=== PATIENT | male | born 1960 ===

== ENCOUNTER 2020-11-14 14:54 | Inpatient (IN) | payer OTHER ==
[~2020-11-14] VITALS: Ht 195.6 cm; Wt 133.0 kg
[2020-11-14 15:53] LABS: Hematocrit 32.7 % (37.0-53.0); Hemoglobin 11.2 g/dL (13.5-17.5); Mean Corpuscular HGB 29.3 pg (26.0-34.0); Mean Corpuscular HGB Conc 34.3 g/dL (31.5-36.5); Mean Corpuscular Volume 86 fL (80-100); Mean Platelet Volume 9.4 fL (9.1-12.4); Platelet Count 188 K/mm3 (150-400); RDW Coefficient Variation 11.3 % (11.7-14.2); RDW Standard Deviation 35.1 fL (35.1-46.3); Red Blood Cell Count 3.82 M/mm3 (4.30-5.90)
[2020-11-14] MEDS ORDERED: Prinivil10 MG PO (16:15)
[2020-11-14] MEDS ORDERED: Vitamin D1000 UNI1 PO (16:15)
[2020-11-14] MEDS ORDERED: METF500 PO (16:15)
[2020-11-14] MEDS ORDERED: Hair, Skin & N1 EACH PO (16:15)
[2020-11-14 16:17] LABS: Alanine Aminotransfer (ALT/SGP 26 U/L (12-78); Albumin, Blood 2.1 g/dL (3.4-5.0); Albumin/Globulin Ratio 0.5 (0.8-1.8); Alk Phos 71 U/L (50-136); Anion Gap 12 mmol/L (6-16); Aspartate Aminotrans (AST/SGOT 32 U/L (12-37); Bilirubin, Total 0.8 mg/dL (0.1-1.0); Blood Urea Nitrogen 55 mg/dL (8-24); Bun/Creatinine Ratio 20.1 (12.0-20.0); CO2, Blood 19 mmol/L (21-32); Calcium, Blood 8.9 mg/dL (8.5-10.1); Chloride, Blood 99 mmol/L (98-108); Creatinine, Blood 2.73 mg/dL (0.60-1.20); Globulin, Blood 4.5 g/dL (2.2-4.0); Glomerular Filtration Rate 24 (60-); Glucose, Blood 256 mg/dL (70-99); Potassium, Blood 4.1 mmol/L (3.5-5.5); Sodium, Blood 130 mmol/L (136-145); Total Protein, Blood 6.6 g/dL (6.4-8.2)
[2020-11-14 16:26] LABS: BAND PERCENT MAN 9 % (0-8); BASOPHILS PERCENT MAN 0 % (0-2); EOSINOPHILS PERCENT MAN 0 % (0-6); LYMPHOCYTES PERCENT MAN 6 % (21-46); METAMYELOCYTE ABSOLUTE MAN 0.15 K/mm3 (0.00-0.00); METAMYELOCYTE PERCENT MAN 1 % (0-0); MONOCYTES PERCENT MAN 6 % (4-13); NEUTROPHILS ABSOLUTE MAN 13.13 K/mm3 (1.96-9.15); SEG NEUTROPHILS PERCENT MAN 78 % (41-73); TOTAL CELLS COUNTED 100
[2020-11-14 16:37] LABS: C-REACTIVE PROTEIN, EXT RANGE >19.000 mg/dL (0.000-0.300)
[2020-11-14 19:34] LABS: SARS-Cov-2 (COVID-19) PCR, MMC NEGATIVE (NEGATIVE)
--- NOTE | 2020-11-14 23:11 | NUR ---
11/14/20 2311 Ester Jackson PT ON SCHEDULED ANTIBIOTIC
--- NOTE | 2020-11-15 02:48 | NUR ---
RECEIVED HAND OFF FROM Claudia JACOB RN USING SBAR. TRANSPORTED TO ROOM 215 VIA STRETCHER. TRANSFERED TO BED WITH FULL STAFF ASSISTANCE, TOLERATED WELL. AAO X4, [place], FOLLOWS ALL COMMANDS. ORIENTED TO ROOM, CALL SYSTEM, AND POC, VOICES UNDERSTAING. RESPIRATIONS EVEN AND UNLABORED ON O2 AT 4L/NC, SAT AT 98%. O2 TITRATED TO 2L/NC, SAT AT 96% AND TOLERATING WELL. ABDOMEN SOFT AND NONDISTENDED. BOWEL SOUNDS NOTED IN ALL QUADS. CONTINENT OF BOWEL AND BLADDER. LLE BKA WITH STUMP DRESSINGS IN PLACE, STUMP SOCK REMIANS C/D/I AND ELEVATED ON 2 PILLOWS. RATES PAIN AT 3/10 AFTER PLACEMENT OF PILLOWS. SCD TO RLE IN PLACE. RIGHT AC 20 PIV IS PATENT, REMAINDER OF OR FLUIDS INFUSING TO GRAVITY. DENIES FURTHER NEEDS AT THIS TIME. ADMISSION ASSESSMENT IN PROGRESS. SAFETY MEASURES IN PLACE. WILL CONTINUE TO MONITOR AND ADDRESS NEEDS THEY ARISE.
[2020-11-15 04:52] LABS: BASOPHILS ABSOLUTE AUTO 0.01 K/mm3 (0.00-0.23); BASOPHILS PERCENT AUTO 0 % (0-2); EOSINOPHILS PERCENT AUTO 0 % (0-6); Hematocrit 30.3 % (37.0-53.0); Hemoglobin 10.3 g/dL (13.5-17.5); IMMATURE GRAN ABSOLUTE AUTO 0.08 K/mm3 (0.00-0.10); IMMATURE GRAN PERCENT AUTO 1 % (0-1); LYMPHOCYTES ABSOLUTE AUTO 0.59 K/mm3 (0.84-5.20); LYMPHOCYTES PERCENT AUTO 6 % (21-46); MONOCYTES ABSOLUTE AUTO 0.36 K/mm3 (0.16-1.47); MONOCYTES PERCENT AUTO 4 % (4-13); Mean Corpuscular HGB 29.2 pg (26.0-34.0); Mean Corpuscular Volume 86 fL (80-100); Mean Platelet Volume 9.4 fL (9.1-12.4); NEUTROPHILS ABSOLUTE AUTO 9.08 K/mm3 (1.96-9.15); NEUTROPHILS PERCENT AUTO 90 % (41-73); Platelet Count 164 K/mm3 (150-400); RDW Coefficient Variation 11.5 % (11.7-14.2); Red Blood Cell Count 3.53 M/mm3 (4.30-5.90); White Blood Cell Count 10.12 K/mm3 (4.00-11.30)
[2020-11-15 05:16] LABS: Bun/Creatinine Ratio 32.2 (12.0-20.0); Calcium, Blood 8.4 mg/dL (8.5-10.1); Creatinine, Blood 1.71 mg/dL (0.60-1.20); Potassium, Blood 4.8 mmol/L (3.5-5.5)
--- NOTE | 2020-11-15 05:59 | NUR ---
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 GAUZE, KERLIX, RJ WRAP, AND STUMP SOCK C/D/I. PT A&O X4 AND PLEASANT. PT IS TOLERATING CLEAR LIQUIDS WELL W/O REPORT OF N/V. PT DENIES PASSING FLATUS AT THIS TIME BUT BOWEL TONES ARE PRESENT. PT HAS REPORTED SOME PAIN AND WAS TREATED PER EMAR. PT SITTING UP IN BED AND RESTING W/CALLLIGHT WITHIN REACH AND USES CALL LIGHT APPROPRIATELY.
[2020-11-15 12:04] LABS: PCO2 Venous 29.2 mmHg (38-42); PO2 Venous 96.8 mmHg (38-42); pH Blood Venous 7.37 (7.34-7.37)
[2020-11-15 12:05] LABS: Base Excess Venous -8.4 mmol/L; Bicarbonate Venous 18.6 mmol/L (24.0-30.0)
[2020-11-16 05:15] LABS: BASOPHILS ABSOLUTE AUTO 0.02 K/mm3 (0.00-0.23); BASOPHILS PERCENT AUTO 0 % (0-2); EOSINOPHILS ABSOLUTE AUTO 0.06 K/mm3 (0.00-0.68); EOSINOPHILS PERCENT AUTO 1 % (0-6); Hematocrit 29.5 % (37.0-53.0); Hemoglobin 10.2 g/dL (13.5-17.5); Mean Corpuscular HGB 29.4 pg (26.0-34.0); Mean Corpuscular HGB Conc 34.6 g/dL (31.5-36.5); Mean Corpuscular Volume 85 fL (80-100); Mean Platelet Volume 9.3 fL (9.1-12.4); Platelet Count 218 K/mm3 (150-400); RDW Coefficient Variation 11.7 % (11.7-14.2); Red Blood Cell Count 3.47 M/mm3 (4.30-5.90); White Blood Cell Count 12.72 K/mm3 (4.00-11.30)
[2020-11-16 05:16] LABS: IMMATURE GRAN ABSOLUTE AUTO 0.13 K/mm3 (0.00-0.10); IMMATURE GRAN PERCENT AUTO 1 % (0-1); LYMPHOCYTES ABSOLUTE AUTO 1.84 K/mm3 (0.84-5.20); LYMPHOCYTES PERCENT AUTO 15 % (21-46); MONOCYTES ABSOLUTE AUTO 0.71 K/mm3 (0.16-1.47); MONOCYTES PERCENT AUTO 6 % (4-13); NEUTROPHILS ABSOLUTE AUTO 9.96 K/mm3 (1.96-9.15); NEUTROPHILS PERCENT AUTO 78 % (41-73)
[2020-11-16 05:39] LABS: Anion Gap 6 mmol/L (6-16); Blood Urea Nitrogen 38 mg/dL (8-24); Bun/Creatinine Ratio 32.8 (12.0-20.0); CO2, Blood 21 mmol/L (21-32); Calcium, Blood 8.7 mg/dL (8.5-10.1); Chloride, Blood 111 mmol/L (98-108); Creatinine, Blood 1.16 mg/dL (0.60-1.20); Glomerular Filtration Rate >60 (60-); Glucose, Blood 199 mg/dL (70-99); Potassium, Blood 4.3 mmol/L (3.5-5.5); Sodium, Blood 138 mmol/L (136-145)
--- NOTE | 2020-11-16 06:12 | NUR ---
SHIFT SUMMARY POD2 L BKA WITH DR. FINNEY. PT REPORTS MINIMAL PHANTOM PAIN AND DISCOMFORT. DENIES TAKING ANY PAIN MEDS T/O SHIFT. DANGLES ON THE SIDE OF BED INDEPENDENTLY AND USED URINAL. AOX4 AND PLEASANT. LLE WRAPPED WITH RJ WRAP AND STUMP SOCK, CDI. TOLERATING PO INTAKE (ADA DIET). CBG AT 263 HS. VOIDING WITHOUT DIFFICULTY. PT HAD A HARD TIME SLEEPING OVERNIGHT. IV ABX ADMINISTERED. BOTH IV ON L FOREARM (NOT PATENT WHILE INFUSING VANCO) AND R AC (LEAKING WHILE FLAGYL WAS INFUSING) WAS DC'S NEW IV ON L FOREARM WAS PLACED THIS AM. CALL LIGHT WITHIN REACH. WILL PROVIDE REPORT TO ONCOMING NURSE.
[2020-11-16 21:27] LABS: Vancomycin, Trough 18.6 ug/mL (5.0-10.0)
--- NOTE | 2020-11-17 05:02 | NUR ---
SHIFT SUMMARY NO ACUTE CHANGES OVERNIGHT. PT REPORTS MINIMAL PHANTOM PAIN ON LLE. DENIES TAKING ANY PAIN. TOLERATING PO INTAKE, DENIES NAUSEA AND VOMITING. VOIDING ADEQUATELY. VANCO ADMINISTERED VIA IV LAST NIGHT. VSS. AFEBRILE. BLOOD CULTURES WAS DRAWN THIS AM, RESULTS PENDING. LLE WITH RJ WRAP AND STUMP SOCK, CDI. AOX4. CALLS APPROPRIATELY. CALL LIGHT WITHIN REACH. WILL PROVIDE REPORT TO ONCOMING NURSE.
--- NOTE | 2020-11-18 03:37 | NUR ---
SHIFT SUMMARY NO ACUTE CHANGES OVERNIGHT. PT SLEPT GOOD T/O SHIFT. POD4 L BKA. LLE WITH RJ WRAP AND STUMP SOCK IN PLACED, CDI. PT DENIES PAIN, DENIES NUMBNESS AND TINGLING SENSATION. VSS. IV ABX ADMINSTERED. SALINE LOCKED. AMBULATES WITH FWW AND GB, SBA. PT HAD 1 BM LAST NIGHT. TOLERATING PO INTAKE, DENIES N/V. CALL LIGHT WITHIN REACH. WILL PROVIDE REPORT TO ONCOMING NURSE.
--- NOTE | 2020-11-18 18:22 | NUR ---
SHIFT SUMMARY PT POD #4 FOR AMPUTATION OF THE L FOOT. HE IS DOING WELL THIS SHIFT AND HAS NOT REPORTED ANY PAIN. POWERGLIDE IN PLACE AND GETTING IV ANTIBIOTICS FOR INFECTION. VSS. WILL REPORT TO KAYLENE GORE.
--- NOTE | 2020-11-19 06:10 | NUR ---
PT IS A/OX3. ABLE TO MAKE HIS NEEDS KNOWN. IN GOOD SPIRITS. PLEASANT AND COOPERATIVE WITH STAFF AND HIS CARE. NO EVENTS DURING THE NIGHT. SHRINK SOCK TO LLE STUMP CDI. REPORTS PAIN TO LLE STUMP 1-03/21, DECLINED PRN PAIN MED. DID REFUSED HS DOSE OF STOOL SOFTNERS, REPORTS HAVING A FEW BM'S. DENIED DIARRHEA BUT SAYS STOOL IS VERY SOFT. DENIED ANY N/V. LFA POWERGLIDE PATENT. TOLERATING IV ABX WELL.
[2020-11-19 11:28] LABS: Albumin, Blood 2.2 g/dL (3.4-5.0); Anion Gap 6 mmol/L (6-16); Blood Urea Nitrogen 20 mg/dL (8-24); Bun/Creatinine Ratio 19.2 (12.0-20.0); CO2, Blood 25 mmol/L (21-32); Calcium, Blood 8.9 mg/dL (8.5-10.1); Chloride, Blood 106 mmol/L (98-108); Creatinine, Blood 1.04 mg/dL (0.60-1.20); Glomerular Filtration Rate >60 (60-); Glucose, Blood 189 mg/dL (70-99); Phosphorus, Blood 2.9 mg/dL (2.5-4.9); Potassium, Blood 4.5 mmol/L (3.5-5.5); Sodium, Blood 137 mmol/L (136-145)
[2020-11-19 11:31] LABS: BASOPHILS ABSOLUTE AUTO 0.08 K/mm3 (0.00-0.23); BASOPHILS PERCENT AUTO 1 % (0-2); EOSINOPHILS ABSOLUTE AUTO 0.48 K/mm3 (0.00-0.68); EOSINOPHILS PERCENT AUTO 5 % (0-6); Hemoglobin 11.8 g/dL (13.5-17.5); IMMATURE GRAN ABSOLUTE AUTO 0.54 K/mm3 (0.00-0.10); IMMATURE GRAN PERCENT AUTO 6 % (0-1); LYMPHOCYTES ABSOLUTE AUTO 1.74 K/mm3 (0.84-5.20); LYMPHOCYTES PERCENT AUTO 18 % (21-46); MONOCYTES ABSOLUTE AUTO 0.61 K/mm3 (0.16-1.47); MONOCYTES PERCENT AUTO 6 % (4-13); Mean Corpuscular HGB 29.4 pg (26.0-34.0); Mean Corpuscular HGB Conc 33.7 g/dL (31.5-36.5); Mean Corpuscular Volume 87 fL (80-100); Mean Platelet Volume 9.1 fL (9.1-12.4); NEUTROPHILS ABSOLUTE AUTO 6.39 K/mm3 (1.96-9.15); NEUTROPHILS PERCENT AUTO 65 % (41-73); Platelet Count 330 K/mm3 (150-400); RDW Coefficient Variation 11.5 % (11.7-14.2); RDW Standard Deviation 36.7 fL (35.1-46.3); Red Blood Cell Count 4.01 M/mm3 (4.30-5.90); White Blood Cell Count 9.84 K/mm3 (4.00-11.30)
--- NOTE | 2020-11-19 14:56 | NUR ---
SUMMARY: PT IS POD5 L BKA. A/O, VSS. SURGICAL SITE WNL AND PT REPORTS DOING EXERCISES IN BED, SEE THERPAY NOTES. PT ABLE TO WALK WITH SBA AND FWW, DOING WELL. PT REPORTS PAIN 2/10 AT MOST AND DENIES NEED FOR NARCO. PLAN [facility]IB[facility] TOMOR[facility]. WILL CTM AND REPORT TO KAYLENE GORE.
--- NOTE | 2020-11-19 17:30 | NUR ---
Pt is alert, oriented. His goal at this time [facility] prior to returning [facility]. He is positive and upbeat about his prognosis. No further issues noted at this time.
--- NOTE | 2020-11-19 17:55 | NUR ---
SUMMARY: PT IS AO TIMES 4 AND IS POD5. THE PT'S STOOL SOFTENER WAS DC. PT WS SEEN BY OT AND PT AND CONDUCTED VARIOUS EXERCISES, ROM, AND AMBULATION. PT HAS GOOD STRENGHT AND STABILITY WHEN STANDING UP, AMBULATING AND TRANSFERRING. PT HAS REFUSED AVAILABLE PAIN MEDS AND HAS A 2/10 PAIN LEVEL; PAIN IS WELL MANAGED. THE LEFT KNEE EXPPERIENCES SOME PAIN WHEN PT STANDS UP. THE PT IS SET TO BE DISCHARGED TO THE REHABILITATION FACILITY AT THE [place] TOMORROW; SET TIME IS UNDERTERMINED. PT IS MOTIVATED TO PARTICIPATE IN REHABILITATION AND ADJUSTMENTS POST SURGERY.
--- NOTE | 2020-11-20 05:30 | NUR ---
PT IS A/OX3. ABLE TO MAKE HIS NEEDS KNOWN. PLEASANT AND COOPERATIVE WITH STAFF AND HIS CARE. NO EVENTS OVER NIGHT. STUMP SOCK IN PLACE TO LLE STUMP. MINIMAL PAIN TO LLE STUMP. DECLINED PAIN MEDS. LUE POWERGLIDE PATENT. , CASSIE.
[2020-11-20 12:48] LABS: SARS-Cov-2 (COVID-19) PCR, MMC NEGATIVE (NEGATIVE)
--- NOTE | 2020-11-20 15:35 | NUR ---
REPORT GIVEN TO RNELVA AT [facility] AT [id number]
--- NOTE | 2020-11-20 15:36 | NUR ---
DRESSING CHANGED TO STUMP AT THIS TIME: INCISION IS WNL, NO DRAINAGE, SLIGHT REDNESS TO SKIN ABOVE INCISION. THERON INTACT. XEROFORM PLACED AT SITE THEN 4X4 GAUZE FOLLOWED BY SOFT ROLL GAUZE AND STUMP SOCK PER ORDER. PT TOLERATED WELL. AXEL RN, LETY AWARE OF DRESSING CHANGE.
--- NOTE | 2020-11-20 16:24 | NUR ---
SUMMARY: PT IS POD6 L BKA. A/O, VSS. NO ACUTE CHANGE TODAY, ABLE TO WORK WITH THERAPY, DOING WELL AMBULATING WITH FWW. PT HAVING LOOSE STOOLS, REFUSING STOOL SOFTENERS. PT DENIED NEED FOR PAIN MED. NO ACUTE CONCERNS AT THIS TIME, PLAN IS FOR TRANSFER TO [facility] TOMORROW AT 0800, PT AWARE. WILL PASS REPORT TO KAYLENE GORE.
--- NOTE | 2020-11-21 04:22 | NUR ---
SHIFT SUMMARY: PT POD#7 FOR A LEFT BKA. PT A&O X4. STUMP SOCK DRESSING C/D/I. PT OUT OF BED TO BATHROOM WITH SBA AND FWW. TOLERATING ACTIVITY WELL. RATING PAIN 2/10 ON PAIN SCALE AND DENIES NEED FOR PAIN MEDICATION. VOIDING WELL IN URINAL. NO SLIDING SCALE COVERAGE INDICATED FOR CBG. PT GIVEN SEMGLEE PER EMAR. PT NEEDING AN ADDITIONAL 2 WEEKS OF IV ABX AFTER DISCHARGE. PLAN FOR DISCHARGE TODAY TO THE [facility]. NO CONCERNS AT THIS TIME.
--- NOTE | 2020-11-21 09:04 | NUR ---
DISCHARGE PATIENT DISCHARGED IN STABLE CONDITION FOR TRANSFER TO [facility] FOR CONTINUATION OF CARE VIA EMS. VSS; REPORT GIVEN TO BAO STEVENSON AT [facility]. ALL BELONGINGS PACKED AND SENT WITH TRANSPORT
== END 2020-11-21 09:00 | disposition home or self-care (01) | DRG 475 ==
LOC: ER 14:54 → SURS 21:35 → ER 21:35 → MEDS 21:35 → SURS 11-15 01:54 → MEDS 11-15 01:54 → SURS 11-15 09:18
PROVIDERS: Family Medicine; Internal Medicine; Physician Assistant; ADMIT Family Medicine
PROC: 0Y6J0Z1 Detachment at Left Lower Leg, High, Open Approach (ICD-10-PCS; principal; 2020-11-15)
DX: M72.6 Necrotizing fasciitis (principal); E87.1 Hypo-osmolality and hyponatremia; N17.9 Acute kidney failure, unspecified; R78.81 Bacteremia; E11.621 Type 2 diabetes mellitus with foot ulcer; L97.529 Non-pressure chronic ulcer of other part of left foot with unspecified severity; I48.91 Unspecified atrial fibrillation; Z98.890 Other specified postprocedural states; Z79.899 Other long term (current) drug therapy; B95.61 Methicillin susceptible Staphylococcus aureus infection as the cause of diseases classified elsewhere
CPT/HCPCS: 36415; 73630; 73700; 80048; 80053; 80069; 80202; 82010; 82803; 82947; 83036; 83605; 85025; 86140; 87040; 87077; 87147; 87186; 88307; 91303; 93005; 93010; 93306; 96365; 96375; 97110; 97116; 97161; 97167; 97530; 97535; 99285-25; A9270; C1751; J0690; J1100; J1650; J1815; J2405; J2543; J2704; J3010; J3370; J7030; J7050; U0004